=== PATIENT | female | born 1985 ===

== ENCOUNTER 2020-10-15 19:53 | Emergency (ER) | payer SELFPAY ==
--- NOTE | 2020-10-16 13:01 | Electrocardiograph Report ---
[facility] Test Date: 2020-10-15 Test Time: 20:43:31 Pat Name: NELLY CANTU Department: Room: Gender: F [employer]: ED : 1985 Requested By: MARILU LUBIN III Order Number: [id number] Reading MD: Asad Leonard Measurements Intervals [place] Rate: 99 P: 76 MN: 140 QRS: 74 QRSD: 82 T: 29 QT: 339 QTc: 435 Interpretive Statements Sinus rhythm Probable left atrial enlargement Probable left ventricular hypertrophy No previous ECG available for comparison Electronically Signed On 10-16-2020 13:00:48 EDT by Asad Leonard
== END 2020-10-15 20:00 | disposition left against medical advice (07) ==
LOC: ED 19:53
DX: R07.9 Chest pain, unspecified (principal); Z53.21 Procedure and treatment not carried out due to patient leaving prior to being seen by health care provider
CPT/HCPCS: 93005